=== PATIENT | male | born 1955 | race Caucasian/White ===

== ENCOUNTER 2018-01-24 18:31 | Emergency (ER) | payer SELFPAY ==
--- NOTE | 2018-01-24 18:50 | PDOC ---
Rapid Medical Evaluation Time Seen by Provider: 01/24/18 18:44 Medical Evaluation: 01/24/18 18:45 I have performed a brief in-person evaluation of this patient. The patient presents with a chief complaint of: no sig Pmhx complains of left sided chest pains which has been intermittent for few months which started worsening since last nigth last night. patient hasn't had any medical visit in over 2 years. report hot sensation at night. Denies N/V, fever, chills, dizziness Pertinent physical exam findings: no acute distress. cardiac: RRR. lungs CTA I have ordered the following:EKG. CMP/CBC/Cardiac profile. CXR The patient will proceed to the ED for further evaluation. Discharge Disposition - Diagnosis Chest pain Qualifiers: Chest pain type: unspecified Qualified Code(s): R07.9 - Chest pain, unspecified - Referrals - Patient Instructions - Post Discharge Activity
[2018-01-24 18:51] VITALS: TEMP 98.3; BMI 24.0
[2018-01-24 19:25] LABS: BASO % 0.4 % (0-2.0); EOS % 0.1 % (0-4.5); HEMATOCRIT 36.1 % (35.4-49); HEMOGLOBIN 12.3 GM/dL (11.7-16.9); LYMPH % 16.6 % (8-40); MCH 33.1 pg (25.7-33.7); MCHC 34.1 g/dl (32.0-35.9); MONO % 11.9 % (3.8-10.2); PLATELET COUNT 170 K/MM3 (134-434); RBC 3.72 M/mm3 (4.00-5.60); RDW 14.2 % (11.9-15.9); WHITE BLOOD COUNT 5.1 K/mm3 (4.0-10.0)
[2018-01-24 20:34] LABS: ALBUMIN 3.1 g/dl (3.4-5.0); ALK PHOS 160 U/L (45-117); ANION GAP 13 MMOL/L (8-16); BILIRUBIN,TOTAL 0.8 mg/dL (0.2-1); BLOOD UREA NITROGEN 9 mg/dL (7-18); CALCIUM 8.7 mg/dL (8.5-10.1); CHLORIDE 99 mmol/L (98-107); CO2 23 mmol/L (21-32); CREATININE 0.8 mg/dL (0.55-1.3); GLUCOSE,RANDOM 216 mg/dL (74-106); SGOT/AST 258 U/L (15-37); SGPT/ALT 103 U/L (13-61); SODIUM 135 mmol/L (136-145); TOT PROT 7.5 g/dl (6.4-8.2)
[2018-01-24] MEDS ORDERED: SODIUM CHLORIDE 0.9% 500 ML INFUS.BAG IV ONE (20:40)
--- NOTE | 2018-01-24 20:59 | PDOC ---
Attending Attestation - Resident Resident Name: Ren Powers - ED Attending Attestation I have performed the following: I have examined & evaluated the patient, The case was reviewed & discussed with the resident, I agree w/resident's findings & plan, Exceptions are as noted - HPI HPI: 01/24/18 20:55 The patient is a 62 year old male with no past medical history who presents to the emergency department with an episode of chest pain last night. Pt states that he was asleep last night when he awoke suddenly with L sided chest pain. He states that it was a severe pain that lasted about 10 minutes and resolved spontaneously. Pt denies any SOB. Denies any radiation of his pain to his back or neck. Now feels completely back to baseline. Has not had any recurrence of the pain. He denies any recent fevers, chills, headache or dizziness. He denies any recent nausea, vomit, diarrhea or constipation. He denies any recent shortness of breath. He denies any recent dysuria, frequency, urgency or hematuria. Denies leg swelling, no recent travel/immobilization. No known FH of [place]. Allergies: NKA Past surgical history: None reported. Social History: Alcohol usage (8 beers per day and liquor consumption). Former smoker (Quit 3 years ago). - Physicial Exam PE: 01/24/18 20:59 "GENERAL: Awake, alert, and fully oriented, in no acute distress. HEAD: No signs of trauma EYES: PERRLA, EOMI, sclera anicteric, conjunctiva clear ENT: Auricles normal inspection, hearing grossly normal, nares patent, oropharynx clear without exudates. Moist mucosa NECK: Nontender, no stepoffs, Normal ROM, supple, no lymphadenopathy, JVD, or masses LUNGS: Breath sounds equal, clear to auscultation bilaterally. No wheezes, and no crackles HEART: Regular rate and rhythm, normal S1 and S2, no murmurs, rubs or gallops ABDOMEN: Soft, nontender, normoactive bowel sounds. No guarding, no rebound. No masses EXTREMITIES: Normal range of motion, no edema. No clubbing or cyanosis. No cords, erythema, or tenderness NEUROLOGICAL: Cranial nerves II through XII intact. 5/5 strength and sensation in all extremities, Normal speech, normal gait, normal cerebellar function SKIN: Warm, Dry, normal turgor, no rashes or lesions noted." - Medical Decision Making 01/24/18 20:59 62 M with 10 minute episode of chest pain last night, now resolved. Pt with no complaints at this time. EKG with no signs of acute ischemia. Vitals initially notable for tachycardia 101, but re-evaluation shows HR 80 without intervention. Pt with no DVT/PE risk factors, no clinical signs of DVT. - Labs, trop - CXR 01/24/18 21:01 Labs notable for elevated LFTs, likely 2/2 excessive ETOH intake. Pt with benign abdomen, negative pearson's. 01/24/18 21:27 CXR clear. Pt is well appearing, with normal vitals. Clinically stable for DC at this time. I discussed the physical exam findings, ancillary test results and final diagnoses with the patient. I answered all of the patient's questions. The patient was satisfied with the care received and felt comfortable with the discharge plan and treatment plan. The patient agrees to follow up with the primary care physician within 24-72 hours.
--- NOTE | 2018-01-24 21:01 | PDOC ---
History of Present Illness - General Chief Complaint: Chest Pain Stated Complaint: CHEST PAIN Time Seen by Provider: 01/24/18 18:44 History Source: Patient, Family (Niece present for interview.) Exam Limitations: Language Barrier (Pt Mohawk speaking only. Requested niece interpret.) - History of Present Illness Initial Comments: 62 y/o male presenting to [facility] ER via private auto requesting evaluation for resolved episode of generalized body cramping with palpitations last night (). Reports crampy pain in his arms, legs, and chest; these are a chronic and unchanged problem. He additionally experienced palpitations for approx. 10 min; resolved spontaneously without intervention. Episode occured after laying down to sleep following imbibing alcohol. He endorses drinking 8 beers and unknown amount of liquor most days of the week. This is an improvement in total amount per niece. Niece reports they elected to be evaluated at this time (~20 hours after symptoms resolved) because she works and only now had time to drive him. She has also scheduled the pt for a office visit with his PCP tomorrow morning (). Social: EtOH: 8 Beers + Liquor daily Tobacco: Former Smoker, stopped 3 years ago, estimated [address] Drugs: Denies PCP: Dr. Steiner Medical Hx: - Pt denies past medical history. Denies prescription medications. Surgical Hx: - Pt denies past surgical history. Past History - Past Medical History Allergies/Adverse Reactions: Allergies Allergy/AdvReac Type Severity Reaction Status Date / Time No Known Allergies Allergy Verified 01/24/18 18:47 COPD: No - Suicide/Smoking/Psychosocial Hx Smoking History: Never smoked Have you smoked in the past 12 months: No If you are a former smoker, when did you quit?: 2014 Information on smoking cessation initiated: No Review of Systems - Review of Systems Able to Perform ROS?: Yes Comments:: In addition to that documented in the HPI above, the additional ROS was obtained : Constitutional: Denies fevers or chills Eyes: Denies vision changes ENMT: Denies sore throat CV: Denies chest pain. Endorses palpitations. Resp: Denies SOB GI: Denies vomiting or diarrhea MSK: Endorses bilateral neck pain, chronic and unchanged for past 20 years *Physical Exam - Vital Signs Last Vital Signs Temp Pulse Resp BP Pulse Ox 98.3 F 84 16 137/77 100 01/24/18 18:48 01/24/18 20:54 01/24/18 18:48 01/24/18 18:48 01/24/18 18:48 - Physical Exam Comments: Constitutional: Well-developed, non-toxic male in no acute distress or obvious discomfort. Found sitting upright in hospital chair. Alert and oriented x4. Answered all questions appropriately and completely. Speech was non-labored, non -pressured. HEENT: Normocephalic. No obvious external signs of trauma. Conjunctiva white, no injection or icterus. Hearing grossly normal. No nasal discharge. Neck is supple, trachea is midline. Cardiovascular: Regular rate and regular rhythm. No murmur, rubs, clicks, or gallops. Peripheral pulses: Radial pulses full. Respiratory: Breathing unlabored. Equal chest rise and fall. Clear to auscultation bilaterally. No stridor, no wheezing, no rhonchi. Gastrointestinal: abdomen is soft, non-tender, non-distended. Hepatomegaly. No pulsatile masses. No overlying skin lesions or obvious signs of trauma. Neuro: Alert and oriented. Moving all four extremities spontaneously. Gait normal, observed walking through the department. Hands non-tremulous at rest or extension. No asterixis. Skin: Warm, dry, and intact. No spider angiomas, bruising, or rashes. Lymphatics: No cervical, supraclavicular, epitrochlear or inguinal nodes palpated. Psych: Affect: appropriate. Mood: normal. ED Treatment Course - LABORATORY CBC & Chemistry Diagram: 01/24/18 19:17 01/24/18 19:17 - ADDITIONAL ORDERS Additional order review: Laboratory Results 01/24/18 19:17 Sodium 135 L Potassium 4.0 Chloride 99 Carbon Dioxide 23 Anion Gap 13 BUN 9 Creatinine 0.8 Creat Clearance w eGFR > 60 Random Glucose 216 H Calcium 8.7 Total Bilirubin 0.8 AST 258 H ALT 103 H Alkaline Phosphatase 160 H Creatine Kinase 118 Troponin I < 0.02 Total Protein 7.5 Albumin 3.1 L 01/24/18 19:17 RBC 3.72 L MCV 97.0 H MCHC 34.1 RDW 14.2 MPV 7.0 L Neutrophils % 71.0 Lymphocytes % 16.6 Monocytes % 11.9 H Eosinophils % 0.1 Basophils % 0.4 Medical Decision Making - Medical Decision Making *Reviewed vital signs, nursing notes, and prior visit documentation (if available). 62 y/o male complaining of resolved palpitations and muscle cramping. Afebrile. Initial vitals revealed borderline tachycardia but all subsequent vitals are within normal limits. Physical exam as described. Suspect muscle cramping vs EtOH intoxication. Low suspicion for ACS, PE, aortic dissection, or costochondritis. CBC, CMP, EKG, Troponin, and CXR ordered by [facility]ME. CBC unremarkable for anemia or leukocytosis. CMP unremarkable for electrolyte derangement. LFTs elevated, AST:ALT >2:1 ratio , suspect secondary to chronic EtOH abuse. Initial troponin not elevated. Low suspicion for ACS. Given symptoms occurred well over three hours ago, do not believe a second troponin is indicated at this time. CXR: Unremarkable for acute cardiopulmonary process. No previous studies available for comparison. Discussed imaging and laboratory results with pt and niece. Answered all questions. Provided return precautions. Pt and niece expressed verbal understanding and agreement with plan to discharge home with outpatient PCP follow up tomorrow as previously scheduled. Additionally provided GI referral for LFT derangement. Provided copies of imaging report and labs obtained today. *DC/Admit/Observation/Transfer Diagnosis at time of Disposition: Elevated liver function tests Chest pain Qualifiers: Chest pain type: unspecified Qualified Code(s): R07.9 - Chest pain, unspecified - Discharge Dispostion Disposition: HOME Condition at time of disposition: Good Decision to Admit order: No - Referrals Referrals: ON STAFF,NOT [Primary Care Provider] - Julieth Martinez DO [Staff Physician] - - Patient Instructions Printed Discharge Instructions: DI for Atypical Chest Pain, DI for Nocturnal Leg Cramps Additional Instructions: Your chest xray, EKG, and heart markers were normal today. Your bloodwork did show elevations in your liver makers that can show be a sign of damage. This is probably related to your alcohol drinking. I have attached your results from todays visit to this packet. Take this to your doctors appointment tomorrow so that your doctor can review them. I have also placed a referral for you to see GI specialist, Dr. Martinez, to discuss your liver markers. You will need to call to make an appointment. The number is included in this packet. Go to the nearest emergency department if your condition worsens or you feel like you need additional emergency evaluation. Print Language: [place] - Post Discharge Activity
[2018-01-24 21:11] VITALS: BP 144/78; PULSE 82
--- NOTE | 2018-01-25 09:35 | EKG ---
Test Reason : Blood Pressure : / mmHG Vent. Rate : 097 BPM Atrial Rate : 097 BPM P-R Int : 168 ms QRS Dur : 074 ms QT Int : 372 ms P-R-T Axes : 069 024 034 degrees QTc Int : 472 ms NORMAL SINUS RHYTHM POSSIBLE LEFT ATRIAL ENLARGEMENT SEPTAL INFARCT , AGE UNDETERMINED ABNORMAL ECG NO PREVIOUS ECGS AVAILABLE Confirmed by JACQUELINE JETT MD ([id number]) on 01/25/2018 9:35:12 AM Referred By: JENNA Confirmed By:JACQUELINE JETT MD
== END 2018-01-24 21:43 | disposition home or self-care (01) ==
LOC: JER 18:31
DX: R07.9 Chest pain, unspecified (principal); R94.5 Abnormal results of liver function studies; F10.10 Alcohol abuse, uncomplicated
CPT/HCPCS: 36415; 71046-TC-FY; 80053; 82550; 84484; 85025; 93005; 93010; 99282-25